=== PATIENT | female | born 1960 | race Hispanic/Latino ===

== ENCOUNTER 2023-10-27 17:13 | Emergency (ER) | payer BC ==
[~2023-10-27] VITALS: Ht 157.5 cm; Wt 79.8 kg
[~2023-10-27 17:13] MED LIST: IBUP-2071 PO
[2023-10-27] MEDS: HYDROCODONE/ACETAMINOPHEN 5/325 MG TAB PO ONE (18:57)
[2023-10-27 20:16] VITALS: BP 136/81; PULSE 65; RESP 16; O2SAT 98
== END 2023-10-27 20:18 | disposition home or self-care (01) ==
LOC: EDH 17:13
DX: S82.041A Displaced comminuted fracture of right patella, initial encounter for closed fracture (principal); S52.591A Other fractures of lower end of right radius, initial encounter for closed fracture; S50.01XA Contusion of right elbow, initial encounter; Z98.890 Other specified postprocedural states; W01.0XXA Fall on same level from slipping, tripping and stumbling without subsequent striking against object, initial encounter; Y93.01 Activity, walking, marching and hiking; Y92.89 Other specified places as the place of occurrence of the external cause; Y99.8 Other external cause status
CPT/HCPCS: 29125; 73080; 73110

== ENCOUNTER 2023-11-07 18:02 | Emergency (ER) | payer BC ==
[~2023-11-07] VITALS: Ht 157.5 cm; Wt 79.4 kg
[2023-11-07] MEDS: ONDANSETRON 4MG INJ IVP ONE (19:44)
[2023-11-07] MEDS: MORPHINE 4 MG SYG IVP ONE (19:44)
[2023-11-07] MEDS: LACTATED RINGERS 1000ML IV SCH (19:53)
[2023-11-07] MEDS: KETOROLAC 30MG VIAL (30MG/ML) IVP ONE (21:20)
[2023-11-07 23:13] VITALS: BP 130/75; PULSE 70; RESP 17; O2SAT 97
== END 2023-11-08 00:11 | disposition home or self-care (01) ==
LOC: EDH 18:02
DX: G89.18 Other acute postprocedural pain (principal); M25.561 Pain in right knee; M79.601 Pain in right arm; Z98.890 Other specified postprocedural states
CPT/HCPCS: 99284; 96374; 96375; 96361; J7120; J2405; J2270; J1885